=== PATIENT | female | born 1955 | race Caucasian/White ===

== ENCOUNTER 2019-05-16 07:16 | Inpatient (IN) | payer MEDICARE ==
[~2019-05-16] VITALS: Ht 160 cm; Wt 85.0 kg
[~2019-05-16 07:16] MED LIST: AMLO10TA8 PO; DENO60DI INJ; IBUP-1222 PO; INSU100I13 SC; LINA5TAB PO; MULT-658 PO; VENL75CA PO; vitamin b-12 INJ
[2019-05-16] MEDS ORDERED: MIDAZOLAM 1 MG/ML, 2ML ONE (07:38)
[2019-05-16] MEDS ORDERED: FENTANYL PF 250 MCG/5ML ONE (07:38)
[2019-05-16] MEDS ORDERED: PROPOFOL 50 ML ONE ×2 (07:46→11:01)
[2019-05-16] MEDS ORDERED: LACTATED RINGERS 1,000 ML IV SCH (08:01)
[2019-05-16] MEDS ORDERED: INSULIN SINGLE DOSE, ER ONE (08:20)
[2019-05-16] MEDS ORDERED: CALC200T3 PO (08:25)
[2019-05-16] MEDS ORDERED: OMEP-110 PO (08:25)
[2019-05-16] MEDS ORDERED: ACET-1600 PO (08:25)
[2019-05-16] MEDS ORDERED: INSULIN REGULAR 100 UNITS/ML, 3ML VIAL SQ-INSULIN ONE (08:30)
[2019-05-16] MEDS ORDERED: EPINEPHRINE 1 MG/ML, 1ML ONE (08:32)
[2019-05-16] MEDS ORDERED: BACITRACIN 50,000 UNIT ONE (08:32)
[2019-05-16] MEDS ORDERED: THROMBIN SPRAY 20,000 UNIT SPRAY TP ONE (08:32)
[2019-05-16] MEDS ORDERED: BUPIVACAINE/PF 0.5% ONE (08:32)
[2019-05-16] MEDS ORDERED: BACITRACIN OINT 500U/GM, 15 GM ONE (08:33)
[2019-05-16] MEDS ORDERED: ACETAMINOPHEN 500 MG TABLET PO ONE (09:00)
[2019-05-16] MEDS ORDERED: SCOPOLAMINE PATCH, 1.5MG PATCH.TD72 TD ONE (09:00)
[2019-05-16] MEDS ORDERED: GABAPENTIN 300 MG CAPSULE PO ONE (09:00)
[2019-05-16] MEDS ORDERED: DEXAMETHASONE 4 MG/ML, 1ML ONE (10:51)
[2019-05-16] MEDS ORDERED: ROCURONIUM 10MG/ML,5ML ONE (10:51)
[2019-05-16] MEDS ORDERED: PROPOFOL 10 MG/ML, 20ML ONE (10:51)
[2019-05-16] MEDS ORDERED: CEFAZOLIN 1,000 MG ONE (10:51)
[2019-05-16] MEDS ORDERED: ONDANSETRON 2MG/ML, 2ML ONE (10:51)
[2019-05-16] MEDS ORDERED: SUCCINYLCHOLINE 20 MG/ML, 10ML ONE (10:51)
[2019-05-16] MEDS ORDERED: LIDOCAINE-MPF 2% ,5ML ONE ×2 (10:52→10:53)
[2019-05-16] MEDS ORDERED: HYDROcodone/APAP 7.5-325MG/15ML UDC PO PRN (11:00)
[2019-05-16] MEDS ORDERED: DIAZEPAM 5 MG/ML, 2ML IVPush PRN (11:00)
[2019-05-16] MEDS ORDERED: METOPROLOL 1 MG/ML, 5ML IV PRN (11:00)
[2019-05-16] MEDS ORDERED: FENTANYL PF 100 MCG/2ML IV PRN (11:00)
[2019-05-16] MEDS ORDERED: PROMETHAZINE 25 MG/ML, 1ML IV PRN (11:00)
[2019-05-16] MEDS ORDERED: MIDAZOLAM 1 MG/ML, 2ML IV PRN (11:00)
[2019-05-16] MEDS ORDERED: ALBUTEROL/IPRATROPIUM 2.5MG/0.5MG, 3 ML NPPB PRN (11:00)
[2019-05-16] MEDS ORDERED: DIPHENHYDRAMINE 50 MG/ML, 1ML IVPush PRN ×2 (11:00→15:00)
[2019-05-16] MEDS ORDERED: hydrALAzine 20 MG/ML, 1ML IV PRN (11:00)
[2019-05-16] MEDS ORDERED: METHOCARBAMOL 1,000 MG in DEXTROSE 5% 100 ML IV ONE (12:30)
[2019-05-16] MEDS ORDERED: DIPHENHYDRAMINE 50 MG/ML, 1ML ONE (12:37)
[2019-05-16] MEDS ORDERED: DIAZEPAM 5 MG/ML, 2ML ONE (12:37)
[2019-05-16] MEDS ORDERED: HYDROmorphone 1 MG/ML, 1ML VIAL ONE (12:37)
[2019-05-16] MEDS: HYDROmorphone 2 MG/ML, 1ML IVPush PRN ×3 (12:40→13:08)
[2019-05-16] MEDS ORDERED: MAGNESIUM HYDROXIDE 8%, 30ML UDC PO PRN (15:00)
[2019-05-16] MEDS ORDERED: DIPHENHYDRAMINE 50 MG/ML, 1ML IM PRN (15:00)
[2019-05-16] MEDS ORDERED: BISACODYL 10 MG SUPP PR PRN (15:00)
[2019-05-16] MEDS ORDERED: PROMETHAZINE 25 MG/ML, 1ML IM PRN (15:00)
[2019-05-16] MEDS ORDERED: ACETAMINOPHEN 650 MG SUPP PR PRN (15:00)
[2019-05-16] MEDS ORDERED: HYDROcodone/APAP 10/325 MG TABLET PO PRN (15:00)
[2019-05-16] MEDS ORDERED: ACETAMINOPHEN 325 MG TABLET PO PRN (15:00)
[2019-05-16] MEDS ORDERED: ONDANSETRON 2MG/ML, 2ML IV PRN (15:00)
[2019-05-16] MEDS ORDERED: METHOCARBAMOL 750 MG TABLET PO PRN (15:00)
[2019-05-16] MEDS ORDERED: LABETALOL 5MG/ML, 20ML IV SCH (15:00)
[2019-05-16] MEDS: INSULIN REGULAR 100 UNITS/ML, 3ML VIAL SQ-INSULIN SCH ×2 (16:00→21:39)
[2019-05-16] MEDS: NS + 20MEQ KCL 1,000 ML IV SCH (17:20)
[2019-05-16 19:28] VITALS: BP 133/76
[2019-05-16] MEDS: DIPHENHYDRAMINE 25 MG CAPSULE PO PRN (20:49)
[2019-05-16] MEDS: CEFAZOLIN PMX 2GM/50ML 50 ML IVPB SCH (21:35)
[2019-05-16] MEDS: AMLODIPINE 10 MG TAB PO SCH (21:36)
[2019-05-16] MEDS: VENLAFAXINE 75 MG CAP ER PO SCH (21:36)
[2019-05-16] MEDS: INSULIN GLARGINE 100 UNITS/ML, PEN SQ-INSULIN SCH (21:41)
[2019-05-16 23:41] VITALS: BP 116/61
[2019-05-17] MEDS: NS + 20MEQ KCL 1,000 ML IV SCH ×3 (03:15→22:36)
[2019-05-17 04:00] VITALS: BP 126/75
[2019-05-17] MEDS: CEFAZOLIN PMX 2GM/50ML 50 ML IVPB SCH ×2 (06:03→13:23)
[2019-05-17 07:29] VITALS: BP 130/73
[2019-05-17] MEDS: INSULIN REGULAR 100 UNITS/ML, 3ML VIAL SQ-INSULIN SCH ×4 (08:03→20:54)
[2019-05-17] MEDS: LINAGLIPTIN 5 MG TAB PO SCH (08:07)
[2019-05-17] MEDS: SENNA/DOCUSATE TABLET PO SCH (08:07)
[2019-05-17] MEDS ORDERED: MAGNESIUM HYDROXIDE 8%, 30ML UDC PO ONE (10:00)
[2019-05-17 13:47] VITALS: BP 133/75
[2019-05-17] MEDS ORDERED: METH750T87 PO (18:09)
[2019-05-17] MEDS ORDERED: HYDR-3240 PO (18:11)
[2019-05-17 19:48] VITALS: BP 143/81
[2019-05-17] MEDS: VENLAFAXINE 75 MG CAP ER PO SCH (20:53)
[2019-05-17] MEDS: AMLODIPINE 10 MG TAB PO SCH (20:53)
[2019-05-17] MEDS: INSULIN GLARGINE 100 UNITS/ML, PEN SQ-INSULIN SCH (20:54)
[2019-05-17] MEDS: DIPHENHYDRAMINE 25 MG CAPSULE PO PRN (22:36)
[2019-05-18 00:56] VITALS: BP 138/71
[2019-05-18 07:43] VITALS: BP 126/78
[2019-05-18] MEDS: INSULIN REGULAR 100 UNITS/ML, 3ML VIAL SQ-INSULIN SCH ×3 (07:45→16:00)
[2019-05-18] MEDS: SENNA/DOCUSATE TABLET PO SCH (08:14)
[2019-05-18] MEDS: LINAGLIPTIN 5 MG TAB PO SCH (08:14)
[2019-05-18] MEDS: NS + 20MEQ KCL 1,000 ML IV SCH (08:42)
[2019-05-18] MEDS ORDERED: HEPARIN 5,000 UNITS/ML, 1ML SQ ONE (12:00)
[2019-05-18] MEDS ORDERED: INSU100C SQ-INSULIN (12:22)
[2019-05-18 14:18] VITALS: BP 136/81
== END 2019-05-18 17:00 | disposition home or self-care (01) | DRG 472 ==
LOC: ORIP 07:16 → 4NE 13:48
PROVIDERS: ADMIT Neurological Surgery; ATTEND Neurological Surgery
PROC: 0RG20A0 Fusion of 2 or more Cervical Vertebral Joints with Interbody Fusion Device, Anterior Approach, Anterior Column, Open Approach (ICD-10-PCS; 2019-05-16)
PROC: 4A11X4G Monitoring of Peripheral Nervous Electrical Activity, Intraoperative, External Approach (ICD-10-PCS; 2019-05-16)
PROC: 0RB30ZZ Excision of Cervical Vertebral Disc, Open Approach (ICD-10-PCS; principal; 2019-05-16 09:30)
DX: M48.02 Spinal stenosis, cervical region (principal); G99.2 Myelopathy in diseases classified elsewhere; M43.12 Spondylolisthesis, cervical region; E11.9 Type 2 diabetes mellitus without complications; M19.90 Unspecified osteoarthritis, unspecified site; I10 Essential (primary) hypertension; R09.02 Hypoxemia; M54.12 Radiculopathy, cervical region; Z86.73 Personal history of transient ischemic attack (TIA), and cerebral infarction without residual deficits
CPT/HCPCS: 72040; 82962; C1713; C1776; C9359; G0378; J0171; J0690; J1100; J1170; J1644; J1815; J2250; J2405; J2704; J3010; J3480; J0330; J1200; J2800; J7120; Q0163